=== PATIENT | male | born 2000 | race Caucasian/White ===

== ENCOUNTER 2019-09-20 00:45 | Emergency (ER) | payer BC ==
[2019-09-20] MEDS ORDERED: Acetaminophen/HYDROcodone 325-5 MG Tab PO ONE ×2 (00:46→01:18)
--- NOTE | 2019-09-20 01:02 | EDM.PDOC ---
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 This has progressively worsened since that time and now he finds it difficult to even open his eyes to the pain and discomfort. There is photophobia. It is a burning and stinging pain. He rates the pain as a 5/10 at present but it is worse with his eyes or attempts to open his eyes. No nausea or vomiting. No other injuries. No direct trauma to his eyes. There are no other associated signs or symptoms. There are no other modifying factors. Onset: Today Duration: Constant, Getting Worse Location: Reports: Face (Both eyes) Quality: Reports: Burning, Sharp (And stinging) Severity: Moderate Improves with: Reports: Rest Worsens with: Reports: Other (Opening eyes. 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 ED ROS GENERAL - Review of Systems Review Of Systems: See Below Constitutional: Reports: No Symptoms HEENT: Reports: Eye Pain, Other (Increased tearing from both eyes) Respiratory: Reports: No Symptoms, Cough Cardiovascular: Reports: No Symptoms Endocrine: Reports: No Symptoms GI/Abdominal: Reports: No Symptoms : Reports: No Symptoms Musculoskeletal: Reports: No Symptoms Skin: Reports: No Symptoms Neurological: Reports: No Symptoms Hematologic/Lymphatic: Reports: No Symptoms Immunologic: Reports: Other (Last tetanus immunization was greater than 5 years ago.) ED EXAM GENERAL W FULL EYE - Physical Exam Exam: See Below Exam Limited By: No Limitations General Appearance: Alert, WD/WN, Moderate Distress Eye Exam: Bilateral Eye: Conjunctival Injection, EOMI, PERRL, Other ( Fluorescein uptake in a pattern in both eyes consistent with industrial welder's doran.) Visual Acuity (R) 20/: 30 Visual Acuity (L) 20/: 50 With Correction: No Eyelids: Bilateral: Normal Appearance Conjunctiva & Sclera: Bilateral: Injected Cornea Exam: Bilateral: Examined with Flourescein (Uptake as above) Extraocular Movements: Bilateral: Intact Pupils: Normal Accommodation Pupillary Size: Bilateral: 3 mm (And reactive) Pupillary Reaction: Bilateral: Brisk Ears: Normal External Exam, Hearing Grossly Normal Nose: Normal Inspection, Normal Mucosa, No Blood Throat/Mouth: Normal Inspection, Normal Oropharynx, Normal Voice, No Airway Compromise Head: Atraumatic, Normocephalic Neck: Normal Inspection, Supple, Non-Tender, Full Range of Motion Respiratory/Chest: No Respiratory Distress, Lungs Clear, Normal Breath Sounds, No Accessory Muscle Use, Chest Non-Tender Cardiovascular: Normal Peripheral Pulses, Regular Rate, Rhythm, No Murmur GI/Abdominal: Normal Bowel Sounds, Soft, Non-Tender, No Mass Back Exam: Normal Inspection Extremities: Normal Inspection, Normal Range of Motion, Non-Tender, No Pedal Edema, Normal Capillary Refill Neurological: Alert, Oriented, CN II-XII Intact, Normal Cognition, No Motor/ Sensory Deficits Skin Exam: Warm, Dry, Intact, Normal Color, No Rash Course - Orders/Labs/Meds Orders: Active Orders 24 hr Category Date Time Status Vaccines to be Administered [RC] PER UNIT ROUTINE Care 09/20/19 01:17 Active Meds: Medications Discontinued Medications Generic Name Dose Route Start Last Admin Trade Name Freq PRN Reason Stop Dose Admin Hydrocodone Bitart/Acetaminophen 2 tab 09/20/19 01:18 09/20/19 01:27 Girard 325-5 Mg PO 09/20/19 01:19 2 tab ONETIME ONE Administration Diphtheria/Tetanus/Acell Pertussis 0.5 ml 09/20/19 01:16 Adacel IM 09/20/19 01:17 .ONCE ONE Erythromycin 1 gm 09/20/19 01:16 Erythromycin 0.5% Ophth Oint EYEBOTH 09/20/19 01:17 ONETIME ONE - Re-Assessments/Exams Free Text/Narrative Re-Assessment/Exam: 09/20/19 01:19 patient with evidence of bilateral UV keratoconjunctivitis ( welders doran). He is to apply erythromycin eye ointment to both eyes times a day for the next 5 days. He is to rest. I did provide him with hydrocodone 5/ 325 for more severe pain. He may take ibuprofen as well. If he is having any persisting problems or concerns, he should follow up with an eye doctor this next week. He will be given a Tdap Immunization today to bring his tetanus immunization status up-to-date. Departure - Departure Time of Disposition: 01:25 Disposition: Home, Self-Care 01 Condition: Good Clinical Impression: Ultraviolet conjunctivitis Qualifiers: Laterality: bilateral Qualified Code(s): H16.133 - Photokeratitis, bilateral - Discharge Information Prescriptions: Erythromycin Base [Erythromycin 0.5% Ophth Oint] 1 applic EYEBOTH QID 5 Days #1 tube Instructions: Ultraviolet Keratitis, [id number] Forms: ED Department Discharge Additional Instructions: You have industrial welder's doran or ultraviolet keratitis of both eyes. You should apply the erythromycin eye ointment to both eyes 4 times a day for the next 5 days. Take ibuprofen for your pain as needed. Hydrocodone 5/325 as needed for more severe pain. Cool compresses over your eyes comfort. Rest with both of your eyes closed. Follow-up with an eye doctor next week for any persisting problems or concerns. You were given a Tdap immunization today to bring your is immunization status up-to-date. - My Orders Last 24 Hours: My Active Orders 09/20/19 01:17 Vaccines to be Administered [RC] PER UNIT ROUTINE - Assessment/Plan Last 24 Hours: My Active Orders 09/20/19 01:17 Vaccines to be Administered [RC] PER UNIT ROUTINE
[2019-09-20] MEDS ORDERED: Diphtheria,Pertussis(Acell),Tetanus Vaccine 0.5 ML SDV IM ONE (01:16)
[2019-09-20] MEDS ORDERED: Erythromycin Base 0.5% Ophth Oint 1 GM Tube EYEBOTH ONE (01:16)
== END 2019-09-20 01:55 | disposition home or self-care (01) ==
LOC: FB.ED 00:45
DX: H16.133 Photokeratitis, bilateral (principal); Z23 Encounter for immunization; Z87.891 Personal history of nicotine dependence
CPT/HCPCS: 90471; 90715; 99283-25; A9270-GY